=== PATIENT | female | born 1990 | race Hispanic/Latino ===

== ENCOUNTER 2024-05-01 10:28 | Day surgery (SDC) | payer SELFPAY ==
[~2024-05-01] VITALS: Ht 147.3 cm; Wt 54.3 kg
[~2024-05-01 10:28] MED LIST: CEFDINIR300 MG PO; CEFTRIAXONE2 GM IV; FLEXERIL5 M1 PO; LORTAB 5/3255 MG PO; MOTRIN200 MG PO; PRE-NATAL; TAMSULOSIN0.4 MG PO
[2024-05-01] MEDS ORDERED: FAMOTIDINE 10MG/ML 2ML SDV IV ONE (10:33)
[2024-05-01] MEDS ORDERED: LACTATED RINGER'S 1,000 ML IV ONE (10:34)
[2024-05-01] MEDS ORDERED: Levofloxacin 500 mg Premix 100 ML IV ONE (10:34)
[2024-05-01] MEDS ORDERED: ISOVUE-300 (Iopamidol) 100 ML SDV IV ONE (11:26)
[2024-05-01] MEDS ORDERED: STERILE WATER FOR IRRIGATION 1,000 ML BTL IR ONE (13:58)
[2024-05-01] MEDS ORDERED: SODIUM CHLORIDE 3,000 ML BAG FOR IRRIGATION IR ONE (13:58)
[2024-05-01] MEDS ORDERED: SODIUM CHLORIDE 0.9% 1,000 ML IV ONE (13:58)
[2024-05-01 14:29] VITALS: BP 131/84
[2024-05-01] MEDS ORDERED: SUCCINYLCHOLINE CHLORIDE 20 MG/ML 10ML VIAL IV ONE (16:26)
[2024-05-01] MEDS ORDERED: DEXAMETHASONE SODIUM PHOSPHATE PF 10 MG/ML SDV IV ONE (16:26)
[2024-05-01] MEDS ORDERED: SUGAMMADEX SODIUM 200 MG/2 ML SDV IV ONE (16:26)
[2024-05-01] MEDS ORDERED: ONDANSETRON HCl 4 MG/2 ML SDV IV ONE (16:26)
[2024-05-01] MEDS ORDERED: PROPOFOL 200 MG/20 ML VIAL IV ONE (16:26)
[2024-05-01] MEDS ORDERED: ROCURONIUM BROMIDE 10 MG/ML 5ML VIAL IV ONE (16:26)
[2024-05-01] MEDS ORDERED: ACETAMINOPHEN 1,000 MG/100 ML VIAL IV ONE (16:26)
[2024-05-01] MEDS ORDERED: LIDOCAINE HCL 2% 2ML SDV IV ONE (16:26)
== END 2024-05-01 14:30 | disposition home or self-care (01) | DRG 661 ==
LOC: ORM 10:28
PROVIDERS: ATTEND Urology
PROC: 0TF48ZZ Fragmentation in Left Kidney Pelvis, Via Natural or Artificial Opening Endoscopic (ICD-10-PCS; principal; 2024-05-01)
PROC: 0T778DZ Dilation of Left Ureter with Intraluminal Device, Via Natural or Artificial Opening Endoscopic (ICD-10-PCS; 2024-05-01)
DX: N20.1 Calculus of ureter (principal); F17.200 Nicotine dependence, unspecified, uncomplicated; Z96.0 Presence of urogenital implants
CPT/HCPCS: J0131; J1100; J1956; J2405; Q9966